=== PATIENT | female | born 1990 | race Caucasian/White ===

== ENCOUNTER 2024-02-16 01:26 | Emergency (ER) | payer SELFPAY ==
--- NOTE | 2024-02-16 01:27 | ED.GENADUL_ITS ---
Discharge Plan Discharge Details Chief Complaint: ETOHWithdr Clinical Impression: Alcohol intoxication ED Provider: Gilbert Anaya Meds and New Rx's Prescriptions: No Action calcium phos,dibas-vitamin D3 77-400 mg-unit tablet 1 tab PO DAILY mecobalamin (vitamin B12) 500 mcg tablet,chewable 500 mcg PO DAILY HPI General Mode of arrival: EMS . Date/Time Provider Initiated Documentation: 02/16/24 01:27 . Limitations to Documentation: altered mental status . Information obtained by: patient and EMS . HPI Narrative: Patient brought into ED by ambulance after she was found by police obviously intoxicated. She reports drinking more than she usually does but does not drink on a regular basis. Has vomited a few times tonight. Denies any other physical complaint. Denies any SI or HI. Denies any drug use. Specifically denies having headache, chest pain, shortness of breath, fever, abdominal pain. Denies any falls or injuries. Related Data Home Medications Medication Instructions Recorded Confirmed calcium phosphate,dibasic 77 1 tab PO DAILY 02/16/24 02/16/24 mg-vitamin D3 400 unit tablet mecobalamin (vitamin B12) 500 mcg 500 mcg PO DAILY 02/16/24 02/16/24 chewable tablet Allergies Allergy/AdvReac Type Severity Reaction Status Date / Time No Known Allergies Allergy Unverified 02/16/24 01:30 Review of Systems Narrative: Per HPI Exam Narrative Exam Narrative: Const: WDWN female in NAD. VS per triage. HEENT: NC/AT. Neck: Supple. Trachea midline. Lungs: Normal respiratory effort. Lungs are clear. Cor: RRR without murmur. Good radial pulses. Neuro: A+O x 3. Slurred speech, slow mentation, unsteady gait. Cranial nerves II - XII grossly intact. No gross motor or sensory deficit. Ext: No C/C/E. Skin: Warm and dry without rash. Medical Decision Making Patient presenting by EMS with alcohol intoxication after being found wandering outside by police. She has previously vomited but currently denies any nausea. Denies any thoughts of self-harm. Denies any physical complaints. Denies drug use but admits to significant amount of alcohol tonight. Will check fingerstick blood sugar and observe in the ED for sobriety. Of note, she is homeless and reports previously working with [facility] to find an apartment. 06:40 - Patient refused fingerstick glucose. She has been sleeping and cooperative. Will plan discharge later this morning once awake assuming clinically sober. Quality:SDOH Health Related Social Needs: Health related social needs risk of homeless, food ins [employer] Health related social needs details homelessness Health related social needs details: homelessness Referrals and interventions: [facility] All Active Problems (Updated 02/16/24 @ 06:41 by Gilbert Anaya MD) Alcohol intoxication (Acute) Medical History No significant past medical history Surgical History No significant past surgical history Social History Smoking/Tobacco Use Status: Current-Occasional Tobacco Type: cigarettes Smoking risk assessment performed?: Yes Alcohol Intake: current Alcohol Intake frequency: a few times a week Drug use: Never Substance use type: does not use Housing: homeless Do you feel safe in your relationship?: Yes
[2024-02-16 01:32] VITALS: BP 126/84; PULSE 104; RESP 21; TEMP 36.6; O2SAT 99
[2024-02-16 07:00] VITALS: BP 142/123; PULSE 82; RESP 18; O2SAT 100
== END 2024-02-16 07:04 | disposition home or self-care (01) ==
LOC: ER 07:07
PROVIDERS: Emergency Provider Emergency Medicine
DX: F10.120 Alcohol abuse with intoxication, uncomplicated (principal); R11.10 Vomiting, unspecified; Z59.00 Homelessness unspecified
CPT/HCPCS: 36416; 82962; 99285; 99283